=== PATIENT | female | born 1965 | race Caucasian/White ===

== ENCOUNTER 2017-05-26 20:45 | Observation (INO) | payer OTHER ==
[2017-05-26 21:25] LABS: ABS Basophils 0.1 10^3/ul (0-0.2); ABS Eosinophils 0.2 10^3/ul (0-0.6); ABS Lymphocytes 2.3 10^3/ul (1.0-4.8); ABS Monocytes 0.5 10^3/ul (0-0.8); ABS Neutrophils 3.9 10^3/ul (1.5-7.7); ABS Nucleated RBC 0 10^3/ul; Eosinophil % 2.7 % (0-6); Hematocrit 41 % (35-47); Mean Corpuscular HGB Conc 34 g/dl (31-36); Mean Corpuscular Hemoglobin 32 pg (27-31); Mean Corpuscular Volume 94 fL (80-97); Mean Platelet Volume 8.1 um3 (7.4-10.4); Nucleated Red Blood Cells % 0.1; Platelet Count 268 10^3/ul (150-450); Red Blood Count 4.35 10^6/ul (4.0-5.4); Red Cell Distribution Width 15 % (10.5-15)
[2017-05-26 21:46] LABS: EGFR Non-African American 82.4 (>60)
--- OUTSIDE RECORDS SUMMARY | 2017-05-26 21:50 | XMS REPORT | Continuity of Care Document ---
:1965 Author Organization [facility] Address [address], [place] [id number] Phone Care Team Providers Name Role Phone Rex KENNEDY, Simon Unavailable Unavailable Lobito KENNEDY, Richard Unavailable Unavailable Allergies, Adverse Reactions, Alerts Substance Reaction Severity Status Sulfa (Sulfonamide Antibiotics) Unknown Active Medications Medication Instructions Dosage Effective Dates Status Comments (start - stop) methotrexate sodium take 5 tablets by 12.5 MG - Active 2.5 mg tablet oral route every week Advil 100 mg tablet take 2 tablet by oral 200 MG - Active route every 4 - 6 hours as needed with food Excedrin Migraine 250 takes 0-4 q week as - Active mg-250 mg-65 mg Tab needed levothyroxine 125 mcg take 1 capsule 125 MCG - Active Cap (125MCG) by oral route every day Problems Condition Effective Dates (start - stop) Clinical Status Sensorineural hearing loss, bilateral 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 Other retirement drug therapy Sensorineural hearing loss, bilateral Other retirement drug therapy Elevation of level of transaminase Sensorineural hearing loss, bilateral Other retirement drug therapy Sensorineural hearing loss, bilateral Other retirement drug therapy Sensorineural hearing loss, bilateral Other retirement drug therapy Sensorineural hearing loss, bilateral 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 [facility] 8 5794 PLLC, 5794 PLLC [facility], [place], [place], [id number], [id number], [place]. [place] tel:+ tel:+ [phone] Arthritis Arthritis Sensorineural Dec-0 [facility] Referring [facility] hearing loss, 6-201 LYUBOV Tan. Provider: Associates Associates bilateralOther 7 5794 Ramos [facility], 5794 PLLC retirement drug [facility] Lobito, [facility], [address], [place], [facility], [place], [place], [id number], [place], [id number], [place], [address]. [place] tel:+[phone] tel:+ tel:+ [phone] Arthritis Arthritis Sensorineural May-0 [place] Referring [facility] hearing loss, 3-201 LYUBOV Tan. Provider: Associates Associates bilateralOther 7 5794 [facility], 5794 PLLC retirement drug [facility], [facility], [address], [place], [facility], [place], [place], [id number], [place], [id number], [place], [address]. [place] tel:+[phone] tel:+ tel:[phone] Arthritis Arthritis [facility] of Feb-0 [facility] level of 8-201 LYUBOV Tan. [facility] transaminase 7 5794 PLLC, 5[address] [facility], [place], [place], [place], [id number], [id number], [place]. [place] tel:+[phone] tel:[phone] Arthritis Arthritis Sensorineural Feb-0 [place] Referring [facility] hearing loss, 8-201 LYUBOV Tan. Provider: [facility] bilateralOther 7 5794 Ramos [facility], 5794 PLLC [facility] [place], [address] [place], [place], [facility] [place], [place], [place], [id number], [place], [id number], [place], [address]. [place] tel:+ tel:+315 tel:[phone] Arthritis Arthritis Sensorineural Nov-1 [place] Referring [facility] hearing loss, LYUBOV Tan. Provider: Uche Associates bilateralOther 6 5794 Ramos [facility], 5794 PLLC terminal gauger drug [facility] [place]obito, [facility] therapy [place], [address] [place], [place], [address] [place], [place], [place], [id number], [place], [id number], [place], [address]. [place] tel:+ tel:+ tel:[phone] Arthritis Arthritis Other retirement Sep-2 [facility] drug therapy Gabriel. [facility] 6 5794 PLLC, 5794 PLLC [facility], [place], [place], [place], [id number], [id number], [place]. [place] tel:+ tel: [phone] Arthritis Arthritis Sensorineural Regino-0 [place] Referring [facility] hearing loss, LYUBOV Tan. Provider: Associates Associates bilateralOther 6 5794 [facility], 5794 PLLC retirement drug [facility] [place], [facility] therapy [place], [address] [place], [place], [facility] [place], [place], [address], [id number], [place], [id number], [place], [address]. [place] tel:+ tel:+315 tel:[phone] Arthritis Arthritis Sensorineural Apr-0 Rybinski [facility] hearing loss, 6 LYUBOV Tan. Provider: Associates Associates bilateralOther 6 5794 Ramos [facility], 5794 PLLC retirement drug [facility] [place], [facility], [address], [place], [facility] [place], [place], [place], [id number], [place], [id number], [place], [address]. [place] tel: tel: tel: [phone] Arthritis Arthritis Sensorineural Feb-2 Jo KENNEDY Referring [facility] hearing loss, Gabriel. Provider: Associates Uche bilateralOther 6 5794 Ramos [facility], 5794 PLLC terminal gauger drug [facility], [facility], [address], [place], [facility] [place], [place], [place], [id number], [place], [id number], [place], [address]. [place] tel:+ tel: tel: [phone] Arthritis Arthritis Apr- Jo KENNEDY Referring [facility] Gabriel. Provider: Associates Uche 4 5794 Ramos [facility], 5794 PLLC [facility], [address], [place], [facility] [place], [place], [place], [id number], [place], [id number], [place], [address]. [place] tel:+ tel: tel: [phone] Arthritis Arthritis Sep-1 [facility] Referring [facility] PA-C Provider: Associates Uche 3 Serene Ramos PLLC, 5794 PLLC 5794 [place], [facility] [address] [place], [place], [address] [place], [place], [address] [place], [place], [place], [id number], [id number], [place], [address]. [place]. tel:+ tel: tel: [phone] Arthritis Arthritis Dec-0 [facility] Referring [facility] Health PA-C Provider: Associates Associates 2 Serene Ramos [facility], [address] [place] [address] [address] [place], [place], [facility] [place], [place], [address] [place], [place], [place], [id number], [id number], [place], [address]. [place]. tel: tel: tel: [phone] Arthritis Arthritis Jo KENNEDY [facility] 9 [place]. Provider: Associates Associates 2 5794 [facility], 5794 [facility], [address], [place], [address] [place], [place], [place] [place], [id number], [place], [id number], [place], [address]. [place] tel: tel: tel: [phone] Family History Family Member Diagnosis Age At Onset Status Unknown Immunizations Vaccine Date Status Comments Influenza, injectable, completed - Completed reason: New trivalent, split virus, 4 years and older, Fluvirin [id number] Influenza, split virus, completed - Completed reason: Other injectable, 3 years and older Provider Fluvirin [id number] Influenza virus vaccine, completed - Completed reason: Other Injection Provider Never had Zoster completed - Completed reason: New Never had completed - Completed reason: Other Provider Payers Payer name Insurance type Covered republican ID Authorization(s) Aetna No Referral Required CI [id number] Aetna No Referral Required CI [id number] Social History Type Description Quantity Date Captured Alcohol Use Details No Caffeine Use Details No Tobacco Use Status No Smoking Status No Vital Signs Date / Height Weight BMI Pulse Blood Temperature Respiratory Body Head BMI Time: Rate Pressure Rate Surface Circumference percentile Area Unknown Chief Complaint And Reason For Visit Unknown Chief Complaint And Reason For Visit Reason For Referral Reason For Referral Unknown Plan Of Care Date Type Action Status Appointment Aminah Kohler BOOKED Date Type Problem Goal Intervention Status Start Date Unknown. History Of Present Illness Encounter Date Complaint History Of Present Illness This patient has no known history of present illness Functional Status Encounter Date Functional Assessment Cognitive Assessment Unknown Medications Administered Medication Instructions Dosage Effective Dates (start - stop) Status Comments Drug Treatment Unknown Instructions Date Instruction Additional Information Reviewed importance of compliance/adherence to medications prescribed Diet: avoid alcohol Avoid live vaccines Risks/benefits of medications reviewed Discussed importance of holding DMARDs/ biologics if patient develops an infection and to notify the treating physician Labs ordered to check disease activity. Labs ordered to check blood counts, liver and kidney functions to monitor safety of medication. Discussed / Reviewed Labs Patient plan printed and given along with recommendations call if symptoms worsen maintain adequate water intake every day maintain adequate water intake every day Reviewed importance of compliance/adherence to medications prescribed Diet: avoid alcohol Avoid live vaccines Risks/benefits of medications reviewed Discussed importance of holding DMARDs/ biologics if patient develops an infection and to notify the treating physician Labs ordered to check disease activity. Labs ordered to check blood counts, liver and kidney functions to monitor safety of medication. Discussed / Reviewed Labs Patient plan printed and given along with recommendations call if symptoms worsen Reviewed importance of compliance/adherence to medications prescribed Diet: avoid alcohol Avoid live vaccines Risks/benefits of medications reviewed Discussed importance of holding DMARDs/ biologics if patient develops an infection and to notify the treating physician Labs ordered to check disease activity. Labs ordered to check blood counts, liver and kidney functions to monitor safety of medication. Discussed / Reviewed Labs Patient plan printed and given along with recommendations call if symptoms worsen maintain adequate water intake every day Reviewed importance of compliance/adherence to medications prescribed Diet: avoid alcohol Avoid live vaccines Risks/benefits of medications reviewed Avoid sun and use high SPF sunblock Discussed importance of holding DMARDs/ biologics if patient develops an infection and to notify the treating physician Labs ordered to check disease activity. Labs ordered to check blood counts, liver and kidney functions to monitor safety of medication. Discussed / Reviewed Labs Patient plan printed and given along with recommendations call if symptoms worsen maintain adequate water intake every day Patient plan printed and given along with recommendations call if symptoms worsen maintain adequate water intake every day Reviewed importance of compliance/adherence to medications prescribed Risks/benefits of medications reviewed Discussed importance of holding DMARDs/ biologics if patient develops an infection and to notify the treating physician Labs ordered to check disease activity. Labs ordered to check blood counts, liver and kidney functions to monitor safety of medication. Discussed / Reviewed Labs
--- OUTSIDE RECORDS SUMMARY | 2017-05-26 21:51 | XMS REPORT | Continuity of Care Document ---
:1965 Author Organization [facility] Address [address], [place] [id number] Phone Care Team Providers Name Role Phone Rex KENNEDY, Simon Unavailable Unavailable Lobito KENNEDY, Richard Unavailable Unavailable Allergies, Adverse Reactions, Alerts Substance Reaction Severity Status Sulfa (Sulfonamide Antibiotics) Unknown Active Medications Medication Instructions Dosage Effective Dates Status Comments (start - stop) methotrexate sodium take 5 tablets by 12.5 MG - Active do not refill 2.5 mg tablet oral route every unless we get week the labs in April 2017. 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 Elevation of level of transaminase Sensorineural hearing loss, bilateral 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 Sensorineural hearing loss, bilateral Other nursing home drug therapy Sensorineural hearing loss, bilateral Other nursing home drug therapy Sensorineural hearing loss, bilateral Other nursing home drug therapy High risk drug monitoring status - Active Sensorineural hearing loss - Active Procedures Procedure Date Unknown Results Test Name Date and Time Measure Units Reference Range Abnormal Flag Comments Unknown Advance Directives Directive Yes / No Effective Date File Name Unknown Encounters Encounter Practice Location Reason(s) Diagnoses Date Provider Care Team Description For Visit Members Arthritis Arthritis 0 [facility] 7-201 LYUBOV Tan. [facility] 8 5794 PLLC, 5794 PLLC [facility], [place], [place], [place], [id number], [id number], [place]. [place] tel:+[phone] tel:[phone] Arthritis Arthritis Sensorineural Dec-0 [facility] hearing loss, 6-201 LYUBOV Tan. Provider: Associates Uche bilateralOther 7 5794 Ramos [facility], 5794 PLLC terminal 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 [facility], [facility], [address] [place], [place], [place], [place], [address] [place] [address], [id number], [place], [id number], [place], [address]. [place] tel:+3154 tel:+315 tel:[phone] Arthritis Arthritis Sensorineural May-0 [facility] hearing loss, 3201 LYUBOV Tan. Provider: Uche Ivey bilateralOther 7 5794 [facility], 5794 PLLC terminal 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 [facility], [facility], [address], [place], [place], [place], [place], [id number], [place], [id number], [place], [address]. [place] tel:+3154 tel:+315 tel:[phone] Arthritis Arthritis Elevation of Feb-0 [facility] Health level of 8-201 LYUBOV Tan. Associates Associates transaminase 7 5794 PLLC, 5794 PLLC [facility], [place], [place], [place], [id number], [id number], [place]. [place] tel:+3154 tel:[phone] Arthritis Arthritis Sensorineural Feb-0 [facility] hearing loss, 8-201 LYUBOV Tan. Provider: Uche Ivey bilateralOther 7 5794 [facility]C, 5794 PLLC terminal 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 [facility] [place], [facility] [place], [address] [place], [place], [address] [place], [place], [id number], [place], [id number], [place], [address]. [place] tel:+3154 tel:+315 tel:[phone] Arthritis Arthritis Sensorineural Nov-1 [facility], LYUBOV Tan. Provider: Uche Ivey bilateralOther 6 5794 Ramos PLLC, 5794 PLLC terminal 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 [facility] [place], [facility] [place], [address] [place], [place], [address] [place], [place], [id number], [place], [id number], [place], [address]. 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 [facility] 6 5794 PLLC, 5794 PLLC [facility] [place], [place], [place], [place], [id number], [id number], [place]. [place] tel:+[phone] tel:[phone] Arthritis Arthritis Sensorineural Regino-0 Rybini [facility] hearing loss, LYUBOV Tan. Provider: Uche Ivey bilateralOther 6 5794 [facility]C, 5794 PLLC terminal 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 [facility] [place], [facility] [place], [address] [place], [place], [place], [id number], [place], [id number], [place], [address]. [place] tel:+3154 tel:+315 tel:[phone] Arthritis Arthritis Sensorineural Apr-0 [facility], LYUBOV Tan. Provider: Uche Ivey bilateralOther 6 5794 Ramos PLLC, 5794 PLLC nursing home drug [facility] [place], [facility] [place], [address] [place], [place], [address] [place], [place], [place], [id number], [place], [id number], [place], [address]. [place] tel:+3154 tel:+315 tel:[phone] Arthritis Arthritis Sensorineural Mar- Jo KENNEDY Referring [facility] hearing loss, [place]. Provider: Associates Associates bilateralOther 6 5794 Ramos PLLC, 5794 PLLC nursing home drug [facility] [place], [facility] [place], [address] [place], [place], [facility] [place], [place], [place], [id number], [place], [id number], [place], [address]. [place] tel:+3154 tel:+ tel:[phone] Arthritis Arthritis Apr- Jo KENNEDY Referring [facility] Gabriel. Provider: Associates Associates 4 5794 Ramos [facility], 5794 PLLC [facility] [place], [facility], [address] [place], [place], [address] [place], [place], [place], [id number], [place], [id number], [place], [address]. [place] tel:+[phone] tel:+315 tel:[phone] Arthritis Arthritis Sep-1 [facility] Referring [facility] PA-C Provider: Associates Associates 3 Serene Ramos [facility]C, 5794 PLLC 5[address] [place], [facility] [address] [place], [place], [facility] [place], [place], [address] [place], [place], [place], [id number], [id number], [place], [address]. [place]. tel:+315 tel:+3154 tel:+[phone] Arthritis Arthritis Dec-0 [facility] Referring [facility] PA-C Provider: Associates Associates 2 Serene Ramos [facility]C, 5794 PLLC 5794 [facility] [address] [place], [place], [facility], [place], [facility], [place], [place], [place], [id number], [id number], [place], [address]. [place]. tel:+315 tel:+3154 tel:[phone] Arthritis Arthritis Jo KENNEDY [facility] 9-201 [place]. Provider: Associates Associates 2 5794 Richard PLLC, 5794 [facility]C [facility], [address], [place], [facility], [place], [facility], [place], [id number], [place], [id number], [place], [address]. [place] tel:+[phone] tel:+315 tel:+ [phone] Family History Family Member Diagnosis Age At Onset Status Unknown Immunizations Vaccine Date Status Comments Influenza, injectable, completed - Completed reason: New trivalent, split virus, 4 years and older, Fluvirin [id number] Influenza, split virus, completed - Completed reason: Other injectable, 3 years and older Provider Fluvirin [id number] Influenza virus vaccine, completed - Completed reason: Other Injection Provider Never had Zoster completed - Completed reason: New Never had completed - Completed reason: Other Provider Payers Payer name Insurance type Covered constitution party ID Authorization(s) Aetna No Referral Required CI [id number] Aetna No Referral Required CI [id number] Social History Type Description Quantity Date Captured [...] Treatment Unknown Instructions Date Instruction Additional Information maintain adequate water intake every day Reviewed [...]
[2017-05-26] MEDS ORDERED: Acetaminophen TAB* 325 MG PO ONE (22:09)
[2017-05-26] MEDS ORDERED: Aspirin TAB* 325 MG PO ONE (22:09)
--- NOTE | 2017-05-26 22:28 | HP ---
H&P (Free Text) History and Physical: PCP: Brenda Goodman MD Date/Time: 05/26/2017 2220 CC: word searching, headache HPI: Mrs Kohler is a 52YO female HX astrocytoma surgically excised in 1973 followed by head & neck radio-TX, thyroid CA s/p R thyroid lobecetomy, & marked hardness of hearing presents today after 2 similar episodes. The first around 1400 was preceded 5 minutes by a sharp/stabbing L temporal headache with subsequent word salad, expressive-type aphasia, R visual field blindness, & an "inability to think" all lasting ~15 minutes. Symptoms recurred around 1900, but were much more prominent & lasted significantly longer, ~30 minutes. Her family became quite concerned and she states she was scared of what was happening prompting her to present. There was no facial droop, W/N/T, change in swallow, convulsion, LOC, or other issues. Both instances spontaneously resolved. She has a history of headaches with "odd symptoms", but this was unlike her previous headaches both from pain & co-symptom standpoints. PMedHx astrocytoma surgically excised 1973 followed by head/neck irradiation thyroid CA s/p R thyroid lobecetomy 2008 acquired hypothyroidism auto-immune hearing loss, on methotrexate headaches Ambulatory Orders Levothyroxine TAB* [Synthroid TAB*] 125 mcg PO DAILY 05/26/17 Methotrexate TAB* 12.5 mg PO SA 05/26/17 Allergies Sulfa (Sulfonamide Antibiotics) Allergy (Verified 05/26/17 20:51) Unknown Reaction Details PSurgHx astrocytoma excision 1973 R thyroid lobectomy for CA 2008 SocHx: no tobacco, mild alcohol, no recreational drugs; lives with her ; full code status FamHx: Mother: alive at 77 w/ breast CA & dementia; Father: passed at 72 2nd lung CA w/ DM2; Brother: factor IX hemophilia ROS: as above, otherwise reviewed and all were negative vitals: Vital Signs Temp 36.4 C 05/26/17 23:06 Pulse 98 05/26/17 23:06 Resp 16 05/26/17 23:06 BP 120/62 05/26/17 23:06 Pulse Ox 99 05/26/17 23:06 Intake & Output 05/26/17 05/26/17 05/27/17 11:59 23:59 11:59 Weight 58.967 kg Constitutional: NAD, normally developed, well-nourished white female HEENM: atraumatic; sclera/conjunctiva: anicteric/clear; blephara: normal; hearing: markedly [id number]; oropharynx: clear, mucosa moist Neck: soft tissue: no nuchal rigidity; thyroid: s/p partial surgical excision, non-tender Pulmonary: clear to auscultation bilaterally, good aeration, no accessory muscle use CV: RR/RR, normal S1S2, no carotid bruit, no jugular venous distention, 2+ B DP/ PT, no edema Abdominal: soft, non-distended, non-tender, no rebound/guarding/rigidity, normoactive bowel sounds, no hepatosplenomegaly or masses, no costovertebral angle tenderness Musculoskeletal: general: grossly intact, no tenderness w/ palpation Integumental: normal appearance and texture of exposed skin Neurological cranial nerves II: visual quadrants intact x8 III/IV/: symmetric light reflex, EOMI/PERRLA V: intact facial sensation VII: normal facial symmetry VIII: hearing markedly decreased IX/X: symmetric palatal motion, no dysarthria XII: midline tongue protrusion, normal voice articulation motor: R-handed LUE: 4+/5 proximally, distally, & director of payroll strength RUE: 4+/5 proximally, distally, & director of payroll strength LLE: 4+/5 proximally & distally RLE: 4+/5 proximally & distally sensory crude touch: intact globally, no extinction Psychiatric orientation: AA&O to PPS affect: mildly anxious mood: cooperative, pleasant eye contact: good content: reliable responses: timely insight: fair to good Testing: Lab Results 05/26/17 05/26/17 05/26/17 Range/Units 21:00 21:00 22:08 WBC 7.0 (3.5-10.8) 10^3/ul RBC 4.35 (4.0-5.4) 10^6/ul Hgb 14.0 (12.0-16.0) g/dl Hct 41 (35-47) % MCV 94 (80-97) fL MCH 32 H (27-31) pg MCHC 34 (31-36) g/dl RDW 15 (10.5-15) % Plt Count 268 (150-450) 10^3/ul MPV 8.1 (7.4-10.4) um3 Neut % (Auto) 56.4 (38-83) % Lymph % (Auto) 33.0 (25-47) % [place] % (Auto) 6.9 (0-7) % Eos % (Auto) 2.7 (0-6) % Baso % (Auto) 1.0 (0-2) % Absolute Neuts (auto) 3.9 (1.5-7.7) 10^3/ul Absolute Lymphs (auto) 2.3 (1.0-4.8) 10^3/ul Absolute Monos (auto) 0.5 (0-0.8) 10^3/ul Absolute Eos (auto) 0.2 (0-0.6) 10^3/ul Absolute Basos (auto) 0.1 (0-0.2) 10^3/ul Absolute Nucleated RBC 0 10^3/ul Nucleated RBC % 0.1 INR (Anticoag Therapy) 0.93 (0.77-1.02) APTT 33.0 (26.0-36.3) seconds Sodium 139 (139-145) mmol/L Potassium 3.7 (3.5-5.0) mmol/L Chloride 107 (101-111) mmol/L Carbon Dioxide 26 (22-32) mmol/L Anion Gap 6 (2-11) mmol/L BUN 14 (6-24) mg/dL Creatinine 0.74 (0.51-0.95) mg/dL Est GFR ( Amer) 106.0 (>60) Est GFR (Non-Af Amer) 82.4 (>60) BUN/Creatinine Ratio 18.9 (8-20) Glucose 98 (70-100) mg/dL Calcium 9.7 (8.6-10.3) mg/dL Total Bilirubin 0.30 (0.2-1.0) mg/dL AST 20 (13-39) U/L ALT 20 (7-52) U/L Alkaline Phosphatase 77 (34-104) U/L Total Protein 6.7 (6.4-8.9) g/dL Albumin 4.1 (3.2-5.2) g/dL Globulin 2.6 (2-4) g/dL Albumin/Globulin Ratio 1.6 (1-3) TSH 0.32 L (0.34-5.60) mcIU/mL ECG, personally reviewed: sinus RBBB rate 97, no ischemia CT brain WO, personally reviewed: IMPRESSION: Surgical changes in the posterior fossa are likely related to previous astrocytoma resection. Comparison to prior studies is recommended. Impression: 52F HX astrocytoma excision from posterior fossa 1973, thyroid R lobectomy for CA 2008 presents with TIA-like symtoms, ? focal seizures DIAGNOSIS & PLAN Primary TIA-like symtoms, ? focal seizures : telemetry : MRI brain WO in AM : ECHO in AM : EEG in AM : consider neurology consult in AM : supplemental oxygen : neurochecks : seizure precautions : supplemental oxygen : supportive care Secondary HX astrocytoma s/p resection 1973 : potential nidus of seizure HX thyroid CA s/p R thyroid lobectomy : no acute issues auto-immune hearing loss : continue methotrexate hypothyroidism : continue levothyroxine Admission Rational: observation for TIA work up DVTp: SCDs Code Status: full HCP:
[2017-05-26 22:33] LABS: INR 0.93 (0.77-1.02)
[2017-05-26] MEDS ORDERED: Aspirin 81 mg CHEW TAB* 81 MG TAB.CHEW ONE (22:39)
--- NOTE | 2017-05-26 23:50 | ED ---
Felix Celeste Stephanie, scribed for Erin Potter MD on 05/26/17 at 2119 . Neurological HPI - HPI Summary HPI Summary: The pt is a 52 y/o F presenting to the ED with c/o confusion that began at 14: 00 and lasted 15 minutes. She states that she was unable to use her phone and was unable to finish a sentence. She had a BRODY during this episode. After 15 minutes, her BRODY resolved. She had another episode at 19:30 today that resolved after 20 minutes. Symptoms include BRODY and R sided vision change. She states she was unable to see out of her R eye. Her vision changes have resolved. The pt denies LE and UE weakness during the two episodes today. The pts was not present during the episodes. - History of Current Complaint Chief Complaint: EDNeurologicalDeficit Stated Complaint: RT SIDE NUMBNESS/CONFUSED Time Seen by Provider: 05/26/17 21:07 Hx Obtained From: Patient Onset/Duration: Sudden Onset, Started hours ago, Resolved Timing: Intermittent Episodes Lasting: - 20 minutes Current Severity: None Headache Location: Diffuse (Right), Diffuse (Left) Pain Intensity: 10 Pain Scale Used: 0-10 Numeric Character: Impaired Speech, Confusion, Visual Changes Aggravating: Nothing Alleviating: Nothing Associated Signs and Symptoms: Positive: Visual Changes, Headache, Confusion, Impaired Speech. Negative: Weakness - Allergy/Home Medications Allergies/Adverse Reactions: Allergies Allergy/AdvReac Type Severity Reaction Status Date / Time Sulfa (Sulfonamide Allergy Unknown Verified 05/26/17 20:51 Antibiotics) Reaction Details Home Medications: Home Medications Levothyroxine TAB* [Synthroid TAB*] 125 mcg PO DAILY 05/26/17 [History Confirmed 05/26/17] Methotrexate TAB* 12.5 mg PO SA 05/26/17 [History Confirmed 05/26/17] PMH/Surg Hx/FS Hx/Imm Hx Endocrine/Hematology History: Reports: Hx Thyroid Disease EENT History: Reports: Hx Deafness - L ear, Hx Auditory Problems - Surgical History Surgery Procedure, Year, and Place: thyroidectomy. 1974- ESTROCYTOMA Infectious Disease History: No Infectious Disease History: Denies: Traveled Outside the [place] in Last 30 Days - Family History Known Family History: Positive: Diabetes - father, Other - hemophilia - Social History Occupation: Employed Full-time Lives: With Family Hx Substance Use: No Substance Use Type: Reports: None Review of Systems Negative: Fever Positive: Other - unable to see on her R vision field Neurological: Other - confusion, impaired speech Positive: Headache. Negative: Weakness, Numbness All Other Systems Reviewed And Are Negative: Yes Physical Exam - Summary Physical Exam Summary: VITAL SIGNS: Reviewed. GENERAL: Patient is a well-developed and nourished (MALE OR FEMALE) who is lying comfortable in the stretcher. Patient is not in any acute respiratory distress. HEAD AND FACE: No signs of trauma. No ecchymosis, hematomas or skull depressions. No sinus tenderness. EYES: PERRLA, EOMI x 2, No injected conjunctiva, no nystagmus. EARS: Old decreased hearing loss in L side. Ear canals and tympanic membranes are within normal limits. MOUTH: Oropharynx within normal limits. NECK: Supple, trachea is midline, no adenopathy, no JVD, no carotid bruit, no c- spine tenderness, neck with full ROM. CHEST: Symmetric, no tenderness at palpation LUNGS: Clear to auscultation bilaterally. No wheezing or crackles. CVS: Regular rate and rhythm, S1 and S2 present, no murmurs or gallops appreciated. ABDOMEN: Soft, non-tender. No signs of distention. No rebound no guarding, and no masses palpated. Bowel sounds are normal. EXTREMITIES: FROM in all major joints, no edema, no cyanosis or clubbing. NEURO: Alert and oriented x 3. No acute neurological deficits. Speech is normal and follows commands. Intact visual dao using confrontation method. Pt walked in ED with steady gait, no ataxia. no weakness SKIN: Dry and warm Triage Information Reviewed: Yes Vital Signs On Initial Exam: Initial Vitals Temp Pulse Resp BP Pulse Ox 97.6 F 101 20 136/105 4 05/26/17 20:47 05/26/17 20:47 05/26/17 20:47 05/26/17 20:47 05/26/17 20:47 Vital Signs Reviewed: Yes Diagnostics - Vital Signs Vital Signs Temp Pulse Resp BP Pulse Ox 05/26/17 20:47 97.6 F 101 20 136/105 4 - Laboratory Result Diagrams: 05/26/17 21:00 05/26/17 21:00 Lab Statement: Any lab studies that have been ordered have been reviewed, and results considered in the medical decision making process. - CT Brain CT Interpretation: No Acute Changes CT Interpretation Completed By: Radiologist - Surgical changes in the posterior fossa are likely related to previous astrocytoma resection. Comparison to prior studies is recommended. ED physician has revewed this report. - EKG 21:25 Cardiac Rate: NL EKG Rhythm: Sinus Rhythm - 97 BPM EKG Interpretation: Normal axis. Normal interval. No ischemic changes Re-Evaluation - Re-Evaluation First Eval Re-Evaluation Time: 22:26 Change: Unchanged - ED physician discussed plan of admission with the pt and her . The pt and her agree with the plan of admission. Course/Dx - Course Course Of Treatment: The pt is a 52 y/o F presenting to the ED with c/o confusion that began at 14:00 and lasted 15 minutes. She states that she was unable to use her phone and was unable to finish a sentence. She had a BRODY during this episode. After 15 minutes, her BRODY resolved. She had another episode at 19:30 today that resolved after 20 minutes. Symptoms include BRODY and R sided vision change. She states she was unable to see out of her R eye. Her vision changes have resolved. The pt denies LE and UE weakness during the two episodes today. The pts was not present during the episodes. At 22:25, Dr. Taylor accepted the pt for admission. - Diagnoses Provider Diagnoses: TIA (transient ischemic attack) - Physician Notifications Discussed Care Of Patient With: Constantin Taylor Time Discussed With Above Provider: 22:25 Instructed by Provider To: Admit As Inpatient Discharge - Sign-Out/Discharge Documenting (check all that apply): Discharge - Discharge Plan Condition: Stable Disposition: ADMITTED TO [facility] documentation as recorded by the Felix waldron Stephanie accurately reflects the service I personally performed and the decisions made by me, Erin Potter MD.
[2017-05-27] MEDS ORDERED: Acetaminophen TAB* 325 MG PO PRN (00:34)
[2017-05-27] MEDS ORDERED: Ondansetron INJ* 2 MG/ML VIAL IV PRN (00:34)
[2017-05-27] MEDS ORDERED: CMCS: Melatonin (NF) 3 MG TAB PO PRN (00:34)
[2017-05-27] MEDS ORDERED: NS 0.9% 1000 ML* 1,000 ML IV SCH (00:45)
[2017-05-27] MEDS ORDERED: Omeprazole CAP* 20 MG PO SCH (06:00)
[2017-05-27] MEDS ORDERED: Levothyroxine TAB* 125 MCG TAB PO SCH (06:00)
--- NOTE | 2017-05-27 08:41 | RAD ---
HISTORY: TIA, history of astrocytoma COMPARISONS: None TECHNIQUE: Multiple contiguous axial CT scans were obtained of the head without intravenous contrast. FINDINGS: HEMORRHAGE/INFARCT: There is no hemorrhage or acute infarct. MASSES/SHIFT: There is no mass or shift. EXTRA-AXIAL SPACES: There are no extra-axial fluid collections. SULCI AND VENTRICLES: The sulci and ventricles are normal in size and position for the patient's stated age. CEREBRUM: There is dystrophic calcification of the thalamus on the right. BRAINSTEM: There are no focal parenchymal abnormalities. CEREBELLUM: There is dystrophic calcification of the cerebellar masters bilaterally. There is post surgical change to the cerebellum VESSELS: The vessels are grossly normal. PARANASAL SINUSES: The paranasal sinuses are clear. ORBITS: The orbits are unremarkable. BONES AND SOFT TISSUE: The patient is status post suboccipital craniotomy. OTHER: None IMPRESSION: POST SURGICAL CHANGE TO THE POSTERIOR FOSSA. NO ACUTE INTRACRANIAL PATHOLOGY.
--- NOTE | 2017-05-27 09:40 | ECHO ---
Patient: OSVALDO ROBIN [facility] Rec#: [id number] : 1965 Date: 05/27/2017 Age: 52y Height: 160.02 cm / 63.0 in Weight: 58.97 kg / 130.0 lbs Sex: F BSA: 1.61 Room#: 444 Admit Date#: 05/26/2017 Type: Inpatient Referring: Constantin Taylor MD Reading: Freddie Browning MD Mold Setter: Maria Teresa Schuster RDCS,RDMS CC: Simon Goodman MD Transthoracic Echocardiogram Indication: TIA BP: 112/54 HR: 87 Rhythm: NSR Findings History: Thyroid cancer, astrocytoma, head and neck radiation Technical Comments: The study quality is good. Left Ventricle: The left ventricular chamber size is normal. There is no left ventricular hypertrophy. Global left ventricular wall motion and contractility are within normal limits. There is normal left ventricular systolic function. The estimated ejection fraction is 55-60%. Normal left ventricular diastolic filling is observed. Left Atrium: The left atrial chamber size is normal. Right Ventricle: The right ventricular chamber size and systolic function are within normal limits. Right Atrium: The right atrial cavity size is normal. Aortic Valve: The aortic valve is trileaflet. Systolic excursion of the aortic valve is normal. There is a trace of aortic regurgitation. There is no evidence of aortic stenosis. Mitral Valve: The mitral valve leaflets appear normal. There is no evidence of mitral regurgitation. There is no evidence of mitral stenosis. Tricuspid Valve: The tricuspid valve leaflets are normal. There is trace tricuspid regurgitation. No pulmonary hypertension is noted. Pulmonic Valve: There is no evidence of pulmonic valve thickening. There is mild pulmonic regurgitation. Pericardium: There is no significant pericardial effusion. Aorta: The aortic root appears normal. There is no dilatation of the aortic arch. Pulmonary Artery: The main pulmonary artery is not well visualized. Venous: The inferior vena cava is dilated. There is a greater than 50% respiratory change in the inferior vena cava dimension. Conclusions There is normal left ventricular systolic function. The estimated ejection fraction is 55-60%. No significant valvular disease: There is a trace of aortic regurgitation. There is trace tricuspid regurgitation. There is mild pulmonic regurgitation. No reports of prior studies are offered for comparison. Measurements Name Value Normal Range RVIDd (AP) 2D 1.9 cm (0.9 - 2.6) RVDdMajor (2D) 1.8 cm (2.2 - 4.4) RAd ISD 4CH 3.6 cm (3.4 - 4.9) RA (A4C)W 2.8 cm (2.9 - 4.6) IVSd (2D) 1 cm (0.6 - 1) LVPWd (2D) 1 cm (0.6 - 1) LVIDd (2D) 3.7 cm (3.6 - 5.4) LVIDs (2D) 2.4 cm - LV FS (2D) 40 % (25 - 45) Aortic Annulus 2 cm (1.4 - 2.6) Ao root diameter (2D) 3.3 cm (2.1 - 3.5) Ascending Ao 3.2 cm (2.1 - 3.4) Aortic arch 2.4 cm (1.8 - 3.4) LA dimension (AP) 2D 2.2 cm (2.3 - 3.8) LAd ISD 4CH 4.4 cm (2.9 - 5.3) LA ISD 4CH W 3.3 cm (2.5 - 4.5) Name Value Normal Range LA ESV SP 4CH (A/L) 24.43 ml - LA ESV SP 2CH (A/L) 50.63 ml - LA ESV BP (A/L) 35.6 ml - LA ESV BP (A/L) index 22 ml/m2 - LA ESV SP 4CH (MOD) 22.91 ml - LA ESV SP 2CH (MOD) 48.91 ml - Name Value Normal Range MV E-wave Vmax 0.6 m/sec - MV deceleration time 113 msec - MV A-wave Vmax 0.5 m/sec - MV E:A ratio 1.2 ratio - P. vein S-wave Vmax 0.6 m/sec - P. vein D-wave Vmax 0.4 m/sec - P. vein S:D Vmax ratio 1.6 ratio - P. vein A-wave duration 78 msec - LV septal e' Vmax 0.11 m/sec - LV lateral e' Vmax 0.12 m/sec - LV E:e' septal ratio 5.5 ratio - LV E:e' lateral ratio 5 ratio - Name Value Normal Range AV Vmax 1.2 m/sec - AV VTI 25 cm - AV peak gradient 6 mmHg - AV mean gradient 2.8 mmHg - LVOT Vmax 1.1 m/sec - LVOT VTI 22.2 cm - LVOT peak gradient 5 mmHg - LVOT mean gradient 2.3 mmHg - MARIA ESTHER Vmax 0.8 m/sec - Name Value Normal Range TR Vmax 2.3 m/sec - TR peak gradient 21 mmHg - RAP 3 mmHg - RVSP 24 mmHg - IVC diameter 2.2 cm - Name Value Normal Range PV Vmax 0.6 m/sec - PV peak gradient 1.4 mmHg -
--- NOTE | 2017-05-27 17:09 | PN ---
Subjective Date of Service: 05/27/17 Interval History: Ms. Kohler reports complete resolution of the symptoms which brought her to the emergency room. She does still have a dull headache. She reports a care home history of various types of headaches and would classify this as one of her "3 day headaches." She denies any vision changes or difficulty finding words. She is very eager for discharge to home and is happy to learn that she will be able to follow up with Dr. Lindsay outpatient. Objective Active Medications: Acetaminophen (Tylenol Tab*) 650 mg PO Q6H PRN Levothyroxine Sodium (Synthroid Tab*) 125 mcg PO DAILY@0600 EMIL Melatonin (Melatonin (Nf)) 3 mg PO BEDTIME PRN; Protocol Methotrexate (Methotrexate Tab*) 12.5 mg PO Sa@0900 EMIL Omeprazole (Prilosec Cap*) 20 mg PO DAILY@0600 EMIL Ondansetron HCl (Zofran Inj*) 4 mg IV Q6H PRN Vital Signs: Temp Pulse Resp BP Pulse Ox 97.6 F 89 16 106/66 100 05/27/17 11:30 05/27/17 11:30 05/27/17 11:30 05/27/17 11:30 05/27/17 11:30 Oxygen Devices in Use Now: None Appearance: Female lying in bed in NAD Eyes: No Scleral Icterus Ears/Nose/Mouth/Throat: NL Teeth, Lips, Gums Neck: NL Appearance and Movements; NL JVP Respiratory: Symmetrical Chest Expansion and Respiratory Effort, Clear to Auscultation Cardiovascular: NL Sounds; No Murmurs; No JVD, No Edema Abdominal: NL Sounds; No Tenderness; No Distention Lymphatic: No Cervical Adenopathy Extremities: No Edema Skin: No Rash or Ulcers Neurological: Alert and Oriented x 3, NL Muscle Strength and Tone Nutrition: Taking PO's Result Diagrams: 05/26/17 21:00 05/26/17 21:00 Assess/Plan/Problems-Billing Assessment: Ms. Kohler is a 52 yo female with a PMH of astrocytoma s/p excision and radiation with chronic headaches and migraines who was admitted on 05/26/17 after a sudden headache followed by expressive aphasia and vision loss on the right, resolved within 2 hours. - Patient Problems (1) Expressive aphasia Comment: - History of multiple types of headaches in the past including migraines. Suspect that symptoms were related to migraine as remainder of workup was negative as per below. - Workup for stroke was negative and she has no risk factors. Patient unable to have MRI due to history of clip. Plan for aspirin daily until follow up with Dr. Lindsay outpatient. - Symptoms could have been related to seizure but her EEG was negative. Status and Disposition: OBV. Discharge to home. Follow up with Dr. Lindsay next week outpatient.
[2017-05-27 17:38] VITALS: BP 108/70
--- NOTE | 2017-05-28 00:12 | EEG ---
ELECTROENCEPHALOGRAPHY: DATE OF STUDY: 05/27/17 - ROOM #444 PATIENT OF: Dr. Taylor. CLINICAL PROBLEM: This is a 52-year-old woman being evaluated for multiple episodes of headache with word finding difficulties including aphasia. She has had a history of astrocytoma and head and neck radiation as well as thyroid cancer and a thyroid lobectomy. MEDICATIONS: Include: 1. Synthroid. 2. Prilosec. 3. Melatonin. 4. Zofran. 5. Methotrexate. REPORT: With the patient awake, background cerebral activity consists of moderate amplitude posterior dominant 9 Hz rhythm which attenuates with eye opening and reappears with eye closure. Admixed beta activity is noted. The patient never falls asleep. No epileptiform potentials, focal abnormalities or major asymmetries of background are noted. CLINICAL IMPRESSION: This awake EEG is within normal limits. [id number] #: [id number] MTDD
--- NOTE | 2017-05-28 03:22 | DS ---
CC: Dr. Goodman; Dr. Greg Lindsay [facility] MEDICINE DISCHARGE SUMMARY: DATE OF ADMISSION: 05/26/17 DATE OF DISCHARGE: 05/27/17 ATTENDING PHYSICIAN: Dr. Silver Banks * (dictation provided by Richa Hoffmann NP). PRIMARY CARE PHYSICIAN: Dr. Goodman. NEUROLOGIST: Dr. Greg Lindsay. PRIMARY DIAGNOSES: Expressive aphasia with headache, suspected migraine versus transient ischemic attack versus seizure. SECONDARY DIAGNOSES: 1. 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 2. Thyroid cancer, status post right thyroid lobectomy in 2008. 3. Acquired hypothyroidism. 4. 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 5. History of headaches and migraines. MEDICATIONS AT THE TIME OF DISCHARGE: 1. Aspirin 81 mg p.o. daily. 2. Levothyroxine 125 mcg p.o. daily. 3. Methotrexate 12.5 mg p.o. on Saturdays. HOSPITAL COURSE: Ms. Kohler is a 52-year-old female with a past medical history of astrocytoma with surgical excision followed by head and neck irradiation as well as frequent headaches including migraines, who presented to the hospital on 05/26/17 with concern for word finding difficulties and headache. Please see dictated H and P from Dr. Constantin Taylor for complete details. In brief, the patient stated that around 2 o'clock that day she had had a sharp stabbing left temporal headache with subsequent word salad, expressive aphasia, right visual field blindness and "inability to think" that lasted about 2 hours in total. There was no report of facial droop, convulsion , loss of consciousness, weakness or other symptom. The patient reported that she had a history of frequent headaches in the past including migraines that included episodes of visual field loss, but never difficulty finding words and therefore, she came to the emergency room for evaluation. In the emergency room, Ms. Kohler had a CT of the brain which showed "postsurgical change at the posterior fossa, no acute intracranial pathology." She had labs which showed no acute abnormalities. A TSH was low at 0.32. She was admitted to the hospital with plans for workup of TIA versus seizure. In terms of a stroke workup, she had a transthoracic echocardiogram that showed the following "normal left ventricular systolic function with estimated ejection fraction of 55% to 65%, no significant valvular disease." She had telemetry monitoring throughout the hospitalization and had no evidence of arrhythmia including atrial fibrillation. She has no history of hypertension, her blood pressure was running in the 90s to 110s systolically while here. She has no history of hyperlipidemia. Lipid profile was pending at the time of discharge. Efforts were made to obtain an MRI brain but she was not approved for the study due to a history of metal clip in the brain from previous surgery. In terms of seizure workup, the patient did have an EEG which did not show any epileptiform discharges. The patient does have a history of migraines and given this negative workup, it is suspected that perhaps her symptoms are related to migraine. Ms. Kohler is medically stable for discharge to home. Again our workup thus far has been negative. In the event that her symptoms were related to a she is being discharged to home on a baby aspirin at 81 mg daily. At this time as there is no clear indication that she did have a seizure, seizure medications are therefore not indicated. In terms of migraine, patient states she has been on multiple agents in the past and is not interested in adding anything at this point. The patient will be following closely with Dr. Greg Lindsay from Neurology. She had not had a neurologist in the past and is appreciative of the opportunity to have close neurological followup within the community. I have encouraged Ms. Kohler to return immediately to the emergency room should she have any worrisome symptoms such as the ones that brought her in today. DISPOSITION: Home. DIET: Regular. ACTIVITY: As tolerated. FOLLOWUP PLANS: 1. Please followup with Dr. Greg Lindsay. His office should be calling the patient for an appointment tomorrow and if she does not hear from them, she has been instructed to call them directly. 2. Please followup with Dr. Goodman regarding his acute hospitalization in the next 3 to 7 days. TIME SPENT: Approximately 60 minutes were spent in the discharge of this patient, more than half that time was spent with the patient at the bedside reviewing the events leading up to and during this hospitalization thus far performing the physical examination and reviewing the plan of care. RICHA HOFFMANN NP [id number]/[facility] #: [id number] EMMANUEL
[2017-05-31] MEDS ORDERED: Methotrexate TAB* 2.5 MG PO SCH (09:00)
== END 2017-05-27 17:53 | disposition home or self-care (01) ==
LOC: ED 20:45 → MEDTELE 22:25
PROVIDERS: ADMIT Hospitalist; ATTEND Internal Medicine
DX: R47.01 Aphasia (principal); R51 Headache; Z86.011 Personal history of benign neoplasm of the brain; Z85.850 Personal history of malignant neoplasm of thyroid; Z90.89 Acquired absence of other organs; E03.9 Hypothyroidism, unspecified; H90.5 Unspecified sensorineural hearing loss; Z79.82 Long term (current) use of aspirin; R07.9 Chest pain, unspecified
CPT/HCPCS: 36415; 70450; 80053; 80061; 84443; 85025; 85610; 85730; 93005; 93306; 95816; 96374; 99284; A9270-GY; G0378